=== PATIENT | female | born 1985 | race African-American/Black ===

== ENCOUNTER 2018-06-04 15:46 | Emergency (ER) | payer OTHER ==
[~2018-06-04] VITALS: Ht 175.3 cm; Wt 104.5 kg
[~2018-06-04 15:46] MED LIST: NOCURR
[2018-06-04] MEDS ORDERED: IBUPROFEN 800 MG TABLET PO ONE (16:45)
[2018-06-04 16:59] VITALS: BP 126/75
[2018-06-04 18:04] LABS: INFLUENZA TYPE A NEGATIVE FOR TYPE A (NEGATIVE); INFLUENZA TYPE B NEGATIVE FOR TYPE B (NEGATIVE)
== END 2018-06-04 17:31 | disposition left against medical advice (07) ==
LOC: EMS 15:47
DX: F17.210 Nicotine dependence, cigarettes, uncomplicated (principal); R11.2 Nausea with vomiting, unspecified; R09.81 Nasal congestion; R52 Pain, unspecified; R05 Cough; J45.909 Unspecified asthma, uncomplicated; G43.909 Migraine, unspecified, not intractable, without status migrainosus
CPT/HCPCS: 87804

== ENCOUNTER 2019-01-16 20:42 | Emergency (ER) | payer OTHER | END 2019-01-16 21:00 | disposition left against medical advice (07) | LOC: EMS 20:43 | DX: Z00.00 Encounter for general adult medical examination without abnormal findings (principal); Z53.21 Procedure and treatment not carried out due to patient leaving prior to being seen by health care provider ==

== ENCOUNTER 2024-06-26 21:16 | Emergency (ER) | payer OTHER ==
[~2024-06-26] VITALS: Ht 170.2 cm; Wt 82.7 kg
[2024-06-26 21:19] VITALS: BP 129/75; PULSE 67; RESP 18; TEMP 98.3; O2SAT 100
[2024-06-26] MEDS ORDERED: MOXI3DRO25 OS (23:06)
[2024-06-26] MEDS: FLUORESCEIN SODIUM 1 MG STRIP OS ONE (23:11)
[2024-06-26] MEDS: ACETAMINOPHEN 325 MG TABLET PO ONE (23:17)
== END 2024-06-26 23:30 | disposition home or self-care (01) ==
LOC: EMS 21:16
DX: H10.9 Unspecified conjunctivitis (principal); J45.909 Unspecified asthma, uncomplicated; F17.210 Nicotine dependence, cigarettes, uncomplicated
CPT/HCPCS: 99283